=== PATIENT | female | born 1985 | race Caucasian/White ===

== ENCOUNTER 2017-09-02 08:43 | Emergency (ER) | payer OTHER ==
[~2017-09-02] VITALS: Ht 165.1 cm; Wt 60.0 kg
[2017-09-02 08:46] VITALS: TEMP 36.8; Ht 165.1 cm; Wt 60.0 kg
[2017-09-02] MEDS ORDERED: DIPH-437 PO (09:09)
[2017-09-02] MEDS ORDERED: MULT-506 PO (09:09)
[2017-09-02] MEDS ORDERED: BUPR8SUB19 SL (09:09)
[2017-09-02] MEDS ORDERED: BUPR-83 PO (09:09)
--- NOTE | 2017-09-02 09:10 | EMERGENCY ROOM VISIT NOTE ---
History Report prepared by Maria Eugenia: Ady Torre Under the Supervision of: Dr. Alvarado Ramírez M.D. First contact with patient: 08:52 Chief Complaint: FOREIGNBODY ANY BODY PART Stated Complaint: POSS UTERINE PROLAPSE-TAMPON CAN NOT BE LOCATED History of Present Illness The patient is a 32 year old female who presents to the Emergency Room with complaints of a possible uterine prolapse beginning earlier today. The patient states she is currently on her menstrual cycle. She reports she went to remove her tampon earlier today, and she could not find it. She believes it is stuck in her uterus. The patient notes she used a mirror to self-inspect a possible prolapse. She states she has a history of two vaginal births and a . The patient denies a history of a uterine prolapse and any other complaint. Source of History: patient Onset: earlier today Position: other (uterus) Quality: other (prolapse) Timing: other (possible) Note: Pt denies any other complaints and a history of a uterine prolapse. Review of Systems See HPI for pertinent positives & negatives. A total of 10 systems reviewed and were otherwise negative. Past Medical & Surgical Medical Problems: (1) No Known Active Medical Problems Family History Patient reports no known family medical history. Social History Smoking Status: Never Smoker Current/Historical Medications Scheduled Acetaminophen/Diphenhydramine (Tylenol Pm), 2 TAB PO HS Buprenorphine Hcl (Subutex), 1 TAB SL TID Bupropion (Wellbutrin), 100 MG PO BID Multivitamin (Multivitamin), 1 TAB PO HS Allergies Coded Allergies: No Known Allergies (Unverified , 09/02/17) Physical Exam Vital Signs Date Time Temp Pulse Resp B/P (MAP) Pulse Ox O2 Delivery O2 Flow Rate FiO2 09/02/17 09:22 88 18 122/63 99 09/02/17 08:46 36.8 98 18 125/67 100 Room Air Physical Exam GENERAL: Awake, alert, well-appearing, in no acute distress HENT: Normocephalic, atraumatic. Oropharynx unremarkable. EYES: Normal conjunctiva. Sclera non-icteric. NECK: Supple. No nuchal rigidity. FROM. No JVD. RESPIRATORY: Clear to auscultation. CARDIAC: Regular rate, normal rhythm. Extremities warm and well perfused. Pulses equal. ABDOMEN: Soft, non-distended. No tenderness to palpation. No rebound or guarding. No masses. RECTAL: Deferred. PELVIC (performed in the presence of a female nurse): Mild blood in the vaginal vault. No foreign body detected. MUSCULOSKELETAL: Chest examination reveals no tenderness. The back is symmetrical on inspection without obvious abnormality. There is no CVA tenderness to palpation. No joint edema. LOWER EXTREMITIES: Calves are equal size bilaterally and non-tender. No edema. No discoloration. NEURO: Normal sensorium. No sensory or motor deficits noted. SKIN: No rash or jaundice noted. Medical Decision & Procedures ED Course 0857: Past medical records reviewed. The patient was evaluated in room A12B. A complete history and physical examination was performed. I performed a pelvic exam. I discussed the results of the patient's exam with her and treatment plan with the patient. She verbalizes agreement and understanding. The patient is ready for discharge. Medical Decision The patient is a 32 year old female who presents to the ED with complaints of a possible prolapsed uterus. Differential diagnoses includes: prolapsed uterus, retained tampon. This is a 32-year-old female who presents the emergency department complaining of possible retained tampon. On pelvic examination I cannot find any evidence of a tampon is however I stressed to the patient that she needs follow-up with OB especially if she develops pelvic pain, fevers or abnormal discharge. The patient also felt she has a prolapsed uterus however on examination the uterus is not prolapsed. I again stressed follow-up with gynecology. Patient was in agreement with the treatment plan. Medication Reconcilliation Current Medication List: was personally reviewed by me Blood Pressure Screening Patient's blood pressure: Normal blood pressure Blood pressure disposition: Did not require urgent referral Impression Primary Impression: Visit for pelvic exam Scribe Attestation The scribe's documentation has been prepared under my direction and personally reviewed by me in its entirety. I confirm that the note above accurately reflects all work, treatment, procedures, and medical decision making performed by me. Departure Information Dispostion Home / Self-Care Referrals Ander Sandoval M.D. (PCP) Forms HOME CARE DOCUMENTATION FORM, IMPORTANT VISIT INFORMATION, WORK / SCHOOL INSTRUCTIONS Patient Instructions My [facility] Additional Instructions Follow up with Global Marketing Specialist, Need to return if you develop abd pain, vag discharge, fevers Thank you for your time and consideration. I look forward to speaking with you again soon. Please don't hesitate to call us if you have any questions.
[2017-09-02 09:22] VITALS: BP 122/63; PULSE 88; O2SAT 99
== END 2017-09-02 09:23 | disposition home or self-care (01) ==
LOC: C.EDB 08:46 → C.EDA 09:23
DX: Z03.89 Encounter for observation for other suspected diseases and conditions ruled out (principal); Z79.899 Other long term (current) drug therapy